=== PATIENT | female | born 1935 | race Two or more races ===

== ENCOUNTER 2017-05-26 09:50 | Inpatient (IN) | payer MEDICARE ==
[~2017-05-26] VITALS: Ht 167.6 cm; Wt 82.6 kg
[2017-05-26] MEDS ORDERED: LR IV STA (10:53)
[2017-05-26] MEDS ORDERED: ACETAMINOPHEN SUSP 80 MG/0.8 ML BOTTLE PO ONE (11:00)
[2017-05-26] MEDS ORDERED: PIPERACILLIN /TAZOBACTAM 3.375 G in IV D5W 50 ML IV ONE (11:00)
[2017-05-26] MEDS ORDERED: IV NS 0.9% 1,000 ML BAG IV ONE (11:00)
[2017-05-26] MEDS ORDERED: ACETAMINOPHEN 160 MG/5 ML ONE (11:03)
[2017-05-26 11:19] LABS: BASOPHILS % (AUTO) 0.1 % (0.0-2.0); EOSINOPHILS # (AUTO) 0.2 /CMM (0.0-0.7); EOSINOPHILS % (AUTO) 1.7 % (0.0-6.0); HEMATOCRIT 35 % (33-45); HEMOGLOBIN 11.7 g/dL (11.5-14.8); LYMPHOCYTES # (AUTO) 0.2 /CMM (0.8-4.8); LYMPHOCYTES % (AUTO) 1.6 % (20.0-44.0); MEAN CORPUSCULAR HEMOGLOBIN 30 PG (26.0-33.0); MEAN CORPUSCULAR HGB CONC 33 g/dl (31.0-36.0); MEAN CORPUSCULAR VOLUME 91 fL (82-100); MONOCYTES # (AUTO) 0.7 /CMM (0.1-1.30); MONOCYTES % (AUTO) 5.5 % (2.0-12.0); NEUTROPHILS # (AUTO) 11.6 /CMM (1.8-8.9); NEUTROPHILS % (AUTO) 91.1 % (43.0-81.0); PLATELET COUNT (AUTO) 207 /CMM (150-450); RDW COEFFICIENT OF VARIATION 14.2 (11.5-15.0); RED BLOOD CELL COUNT(AUTO) 3.87 MIL/uL (4.0-5.2); WHITE BLOOD COUNT (AUTO) 12.7 K/uL (4.3-11.0)
[2017-05-26 11:25] VITALS: BP 171/78
[2017-05-26 11:29] LABS: APPEARANCE,URINE Turbid (CLEAR); BILIRUBIN,URINE Negative (NEGATIVE); BLOOD, URINE Negative Ery/uL (NEGATIVE); COLOR,URINE Yellow (YELLOW); KETONES,URINE Trace (NEGATIVE); LEUKOCYTE ESTERASE ,URINE Small (NEGATIVE); NITRITE, URINE Negative (NEGATIVE); PH,URINE 5.5 (5.0-8.0); PROTEIN,URINE 100 mg/dl (NEGATIVE); UGLUCOSE Negative (NEGATIVE); UROBILINOGEN,URINE 0.2 EU/dL (0.2)
[2017-05-26 11:29] LABS: ABG BASE EXCESS 4.7 mmol/L; ABG OXYGEN SATURATION 98.2 % (92.0-98.5); ABG PCO2 56.6 mmHg (35.0-45.0); ABG PH 7.362 (7.350-7.450); AaDO2 233.5 mmHg; COHb 0.1 % (0.5-1.5); MetHb 0.4 % (0.0-1.5); O2Hb 97.7 % (94.0-97.0); PEEP,BG 5 cm H2O; SITE, ABG Left Radial; VENT MODE, BG A/C; VT, ABG 500 mL
[2017-05-26 11:34] LABS: PROTHROMBIN TIME 10.4 SECS (9.5-12.7)
[2017-05-26 11:37] LABS: TROPONIN I < 0.017 ng/mL (0.00-0.056)
[2017-05-26 11:44] LABS: BACTERIA,URINE Moderate /HPF (None Seen); RBC,URINE 0-2 /HPF (0-2); WBC,URINE TOO NUMEROUS TO COUN /HPF (0-3)
[2017-05-26 11:45] LABS: SQUAMOUS EPITHELIAL CELL,UR Many /HPF (None Seen)
[2017-05-26 11:48] LABS: ALANINE AMINOTRANSFERASE 16 U/L (12-78); ALBUMIN 2.8 g/dL (3.4-5.0); ALKALINE PHOSPHATASE 73 U/L (46-116); ASPARTATE AMINOTRANSFERASE 23 U/L (15-37); BILIRUBIN,DIRECT 0.1 mg/dL (0.0-0.2); BILIRUBIN,TOTAL 0.2 mg/dL (0.2-1.0); CALCIUM, SERUM 8.9 mg/dL (8.5-10.1); CARBON DIOXIDE 35 mmol/L (21-32); CHLORIDE 100 mmol/L (98-107); CREATININE 0.8 mg/dL (0.6-1.3); GLUCOSE 151 mg/dL (74-106); POTASSIUM 3.9 mmol/L (3.5-5.1); SODIUM SERUM 139 mmol/L (136-145); TOTAL PROTEIN, SERUM 7.6 g/dL (6.4-8.2); UREA NITROGEN, BLOOD 22 mg/dL (7-18)
[2017-05-26] MEDS ORDERED: CEFTRIAXONE 1GM BAG (ER ONLY) 1 GM/50 ML PIGGYBACK IV ONE (12:30)
[2017-05-26 14:34] VITALS: BP 158/79
[2017-05-26] MEDS ORDERED: ONDANSETRON HCL/PF 4 MG/2 ML VIAL IV PRN (15:00)
[2017-05-26] MEDS ORDERED: ACETAMINOPHEN 650 MG/20.3 ML UDC PO PRN (15:00)
[2017-05-26] MEDS ORDERED: DOSING PER PHARMACY-AMIKACI IV XX PRN (15:30)
[2017-05-26] MEDS ORDERED: MVI-12 10ML IV ONE (15:30)
[2017-05-26] MEDS ORDERED: ALBUTEROL FS 2.5 MG/3 ML VIAL.NEB ONE (15:39)
[2017-05-26] MEDS ORDERED: IPRATROPIUM NEB FS 0.5 MG/2.5 ML AMPUL.NEB ONE (15:39)
[2017-05-26] MEDS: IPRATROPIUM NEB FS 0.5 MG/2.5 ML AMPUL.NEB NEB SCH (15:42)
[2017-05-26] MEDS: ALBUTEROL FS 2.5 MG/0.5 ML VIAL.NEB NEB SCH (15:42)
[2017-05-26 15:43] VITALS: BP 114/55
[2017-05-26] MEDS ORDERED: GLYTROL 1,000 ML BAG GT PRN ×2 (16:00)
[2017-05-26 17:29] VITALS: BP 99/48
[2017-05-26 20:00] VITALS: BP 158/81
[2017-05-26 20:14] VITALS: BP 98/42
[2017-05-26] MEDS ORDERED: PIPERACILLIN /TAZOBACTAM 3.375 G VIAL IV ONE (21:31)
[2017-05-26] MEDS ORDERED: LEVETIRACETAM SOL (5 ML) 100 MG/ML UDC ONE (21:31)
[2017-05-26] MEDS ORDERED: ACETAMINOPHEN 325 MG TABLET ONE (21:32)
[2017-05-26] MEDS ORDERED: MULTIVITAMIN/LUTEIN/MINERALS 1 TAB ONE (21:32)
[2017-05-26] MEDS: IV NS 0.9% 100 ML IV SCH ×5 (23:38→23:45)
[2017-05-26] MEDS: PIPERACILLIN /TAZOBACTAM 3.375 G in IV D5W 50 ML IV SCH (23:39)
[2017-05-26] MEDS: LEVETIRACETAM SOL (5 ML) 100 MG/ML UDC PO SCH (23:39)
[2017-05-27] VITALS (8 sets, daily range): BP systolic 114–168; BP diastolic 50–78
[2017-05-27] MEDS ORDERED: ALBUTEROL FS 2.5 MG/0.5 ML VIAL.NEB ONE ×2 (02:02→23:08)
[2017-05-27] MEDS ORDERED: IPRATROPIUM NEB FS 0.5 MG/2.5 ML AMPUL.NEB ONE (02:02)
[2017-05-27] MEDS: ALBUTEROL FS 2.5 MG/0.5 ML VIAL.NEB NEB SCH ×5 (02:08→23:29)
[2017-05-27] MEDS: IPRATROPIUM NEB FS 0.5 MG/2.5 ML AMPUL.NEB NEB SCH ×7 (02:08→23:29)
[2017-05-27] MEDS: IV NS 0.9% 1,000 ML BAG IV PRN ×2 (04:11→04:15)
[2017-05-27] MEDS ORDERED: IV NS 0.9% 1,000 ML BAG IV PRN ×3 (05:00→07:30)
[2017-05-27] MEDS ORDERED: PIPERACILLIN /TAZOBACTAM 3.375 G VIAL IV ONE (05:37)
[2017-05-27] MEDS: PIPERACILLIN /TAZOBACTAM 3.375 G in IV D5W 50 ML IV SCH ×6 (06:23→23:14)
[2017-05-27 07:51] LABS: BASOPHILS % (AUTO) 0.6 % (0.0-2.0); EOSINOPHILS # (AUTO) 0.1 /CMM (0.0-0.7); EOSINOPHILS % (AUTO) 1.8 % (0.0-6.0); HEMATOCRIT 29 % (33-45); HEMOGLOBIN 9.7 g/dL (11.5-14.8); LYMPHOCYTES # (AUTO) 0.6 /CMM (0.8-4.8); MEAN CORPUSCULAR HEMOGLOBIN 31 PG (26.0-33.0); MEAN CORPUSCULAR HGB CONC 34 g/dl (31.0-36.0); MEAN CORPUSCULAR VOLUME 91 fL (82-100); MONOCYTES # (AUTO) 0.6 /CMM (0.1-1.30); MONOCYTES % (AUTO) 10.2 % (2.0-12.0); NEUTROPHILS # (AUTO) 4.6 /CMM (1.8-8.9); NEUTROPHILS % (AUTO) 76.4 % (43.0-81.0); PLATELET COUNT (AUTO) 160 /CMM (150-450); RDW COEFFICIENT OF VARIATION 14.2 (11.5-15.0); RED BLOOD CELL COUNT(AUTO) 3.18 MIL/uL (4.0-5.2); WHITE BLOOD COUNT (AUTO) 5.9 K/uL (4.3-11.0)
[2017-05-27 08:24] LABS: ALANINE AMINOTRANSFERASE 17 U/L (12-78); ALBUMIN 2.3 g/dL (3.4-5.0); ALKALINE PHOSPHATASE 53 U/L (46-116); ASPARTATE AMINOTRANSFERASE 25 U/L (15-37); BILIRUBIN,TOTAL 0.3 mg/dL (0.2-1.0); CARBON DIOXIDE 30 mmol/L (21-32); CHLORIDE 106 mmol/L (98-107); CREATININE 0.8 mg/dL (0.6-1.3); GLUCOSE 96 mg/dL (74-106); POTASSIUM 3.7 mmol/L (3.5-5.1); SODIUM SERUM 143 mmol/L (136-145); TOTAL PROTEIN, SERUM 6.2 g/dL (6.4-8.2); UREA NITROGEN, BLOOD 19 mg/dL (7-18)
[2017-05-27] MEDS ORDERED: IV NS 0.9% 1,000 ML IV PRN (08:30)
[2017-05-27] MEDS ORDERED: BISA10SU8 RC (08:44)
[2017-05-27] MEDS ORDERED: PROT946L GT (08:44)
[2017-05-27] MEDS ORDERED: LEVO25TA9 GT (08:44)
[2017-05-27] MEDS ORDERED: CARB-93 GT (08:44)
[2017-05-27] MEDS ORDERED: SENN-167 GT (08:44)
[2017-05-27] MEDS ORDERED: AMLO5TAB2 GT (08:44)
[2017-05-27] MEDS ORDERED: GABA-532 GT (08:44)
[2017-05-27] MEDS ORDERED: PANT40SU2 GT (08:44)
[2017-05-27] MEDS ORDERED: LACT-96 GT (08:44)
[2017-05-27] MEDS ORDERED: IPRA3AMP IH ×2 (08:44)
[2017-05-27] MEDS ORDERED: POLY119P2 GT (08:44)
[2017-05-27] MEDS ORDERED: DEXT15DR6 EACHEYE (08:44)
[2017-05-27] MEDS ORDERED: ACET-868 GT (08:44)
[2017-05-27] MEDS ORDERED: ONDA4TAB5 GT (08:44)
[2017-05-27] MEDS ORDERED: LACT10SO GT (08:44)
[2017-05-27] MEDS ORDERED: LEVE100S GT (08:44)
[2017-05-27] MEDS ORDERED: MULT-213 GT (08:44)
[2017-05-27] MEDS ORDERED: HYDR-4075 GT (08:44)
[2017-05-27] MEDS: MULTIVITAMINS,THERAGRAN 1 UDTAB TABLET GT SCH (08:52)
[2017-05-27] MEDS: GABAPENTIN 100 MG CAPSULE PO SCH ×3 (08:52→18:08)
[2017-05-27] MEDS: LEVETIRACETAM SOL (5 ML) 100 MG/ML UDC PO SCH ×3 (08:55→22:21)
[2017-05-27] MEDS ORDERED: PEDI NO 1 IV ONE ×2 (09:00)
[2017-05-27] MEDS ORDERED: MVI IV ONE ×2 (09:00)
[2017-05-27] MEDS ORDERED: VIT K IV ONE ×2 (09:00)
[2017-05-27] MEDS ORDERED: NS IV ONE ×2 (09:00)
[2017-05-27] MEDS ORDERED: CARBIDOPA/LEVODOPA 25/100 MG 1 UDTAB PO SCH (09:00)
[2017-05-27] MEDS: GLYTROL 1,000 ML BAG GT PRN (09:09)
[2017-05-27] MEDS: AMIKACIN 500 MG in IV D5W 100 ML IV SCH (10:31)
[2017-05-27 10:45] LABS: ABG OXYGEN SATURATION 94.5 % (92.0-98.5); ABG PCO2 53.8 mmHg (35.0-45.0); ABG PH 7.358 (7.350-7.450); ABG PO2 75.3 mmHg (75.0-100.0); COHb 0.5 % (0.5-1.5); MetHb 0.4 % (0.0-1.5); O2Hb 93.6 % (94.0-97.0); PEEP,BG 5 cm H2O; SITE, ABG Left Radial; VENT MODE, BG AC 14 550 40% +5; VT, ABG 550 mL
[2017-05-27] MEDS: VANCOMYCIN 1 GM in IV D5W 250 ML IV SCH (11:25)
[2017-05-27] MEDS ORDERED: FEE PK DOSING 1 MIN EA MC ONE ×3 (14:34→14:42)
[2017-05-27] MEDS ORDERED: Z GUARD REMEDY 4 OZ OINT TP PRN (15:30)
[2017-05-28] VITALS (8 sets, daily range): BP systolic 98–155; BP diastolic 51–77
[2017-05-28] MEDS ORDERED: ALBUTEROL FS 2.5 MG/0.5 ML VIAL.NEB ONE (03:02)
[2017-05-28] MEDS: VANCOMYCIN 1 GM in IV D5W 250 ML IV SCH ×2 (03:08→21:55)
[2017-05-28] MEDS: ALBUTEROL FS 2.5 MG/0.5 ML VIAL.NEB NEB SCH ×5 (03:11→19:55)
[2017-05-28] MEDS: IPRATROPIUM NEB FS 0.5 MG/2.5 ML AMPUL.NEB NEB SCH ×6 (03:11→19:54)
[2017-05-28] MEDS: PIPERACILLIN /TAZOBACTAM 3.375 G in IV D5W 50 ML IV SCH ×3 (05:22→18:23)
[2017-05-28] MEDS: GLYTROL 1,000 ML BAG GT PRN (05:57)
[2017-05-28 07:27] LABS: CARBON DIOXIDE 29 mmol/L (21-32); CHLORIDE 103 mmol/L (98-107); CREATININE 0.8 mg/dL (0.6-1.3); GLUCOSE 109 mg/dL (74-106); MAGNESIUM 1.8 mg/dL (1.8-2.4); POTASSIUM 3.4 mmol/L (3.5-5.1); SODIUM SERUM 139 mmol/L (136-145); UREA NITROGEN, BLOOD 13 mg/dL (7-18)
[2017-05-28 07:30] LABS: BASOPHILS % (AUTO) 0.4 % (0.0-2.0); EOSINOPHILS # (AUTO) 0.2 /CMM (0.0-0.7); EOSINOPHILS % (AUTO) 4.3 % (0.0-6.0); HEMATOCRIT 29 % (33-45); HEMOGLOBIN 9.6 g/dL (11.5-14.8); LYMPHOCYTES # (AUTO) 0.6 /CMM (0.8-4.8); LYMPHOCYTES % (AUTO) 11.2 % (20.0-44.0); MEAN CORPUSCULAR HEMOGLOBIN 30 PG (26.0-33.0); MEAN CORPUSCULAR HGB CONC 33 g/dl (31.0-36.0); MEAN CORPUSCULAR VOLUME 91 fL (82-100); MONOCYTES # (AUTO) 0.6 /CMM (0.1-1.30); MONOCYTES % (AUTO) 10.3 % (2.0-12.0); NEUTROPHILS # (AUTO) 4.2 /CMM (1.8-8.9); NEUTROPHILS % (AUTO) 73.8 % (43.0-81.0); PLATELET COUNT (AUTO) 161 /CMM (150-450); RDW COEFFICIENT OF VARIATION 14.1 (11.5-15.0); RED BLOOD CELL COUNT(AUTO) 3.17 MIL/uL (4.0-5.2); WHITE BLOOD COUNT (AUTO) 5.6 K/uL (4.3-11.0)
[2017-05-28] MEDS ORDERED: PANTOPRAZOLE 40 MG TABLET.DR PO SCH (07:30)
[2017-05-28] MEDS ORDERED: IV NS 0.9% 1,000 ML BAG IV PRN (07:30)
[2017-05-28] MEDS: GABAPENTIN 100 MG CAPSULE PO SCH ×3 (10:03→16:21)
[2017-05-28] MEDS: MULTIVITAMINS,THERAGRAN 1 UDTAB TABLET GT SCH (10:03)
[2017-05-28] MEDS: AMIKACIN 500 MG in IV D5W 100 ML IV SCH (10:05)
[2017-05-28] MEDS: IV NS 0.9% 1,000 ML IV PRN (12:34)
[2017-05-28] MEDS: PROSOURCE / PROSTAT (PYXIS) 30 ML UDC GT SCH (16:21)
[2017-05-28] MEDS ORDERED: KETOCONAZOLE SHAMPOO 120 ML BOTTLE TP SCH ×2 (20:00→20:15)
[2017-05-28] MEDS ORDERED: POTASSIUM CHLORIDE 20 MEQ TAB.PRT.SR PO ONE (20:00)
[2017-05-28] MEDS: FLUOCINONIDE 0.05% CREAM 60 GM TUBE TP SCH (21:00)
[2017-05-28] MEDS: LEVETIRACETAM SOL (5 ML) 100 MG/ML UDC PO SCH (21:54)
[2017-05-29] VITALS: BP 134/57
[2017-05-29] MEDS: ALBUTEROL FS 2.5 MG/0.5 ML VIAL.NEB NEB SCH ×6 (00:13→19:56)
[2017-05-29] MEDS: IPRATROPIUM NEB FS 0.5 MG/2.5 ML AMPUL.NEB NEB SCH ×6 (00:13→19:56)
[2017-05-29] MEDS: PIPERACILLIN /TAZOBACTAM 3.375 G in IV D5W 50 ML IV SCH ×5 (00:19→23:49)
[2017-05-29] MEDS: IV NS 0.9% 1,000 ML IV PRN ×2 (02:24→16:41)
[2017-05-29 04:00] VITALS: BP 146/59
[2017-05-29] MEDS: GLYTROL 1,000 ML BAG GT PRN ×2 (05:51→16:42)
[2017-05-29 06:52] LABS: BASOPHILS % (AUTO) 0.4 % (0.0-2.0); EOSINOPHILS # (AUTO) 0.3 /CMM (0.0-0.7); EOSINOPHILS % (AUTO) 5.6 % (0.0-6.0); HEMATOCRIT 29 % (33-45); HEMOGLOBIN 9.9 g/dL (11.5-14.8); LYMPHOCYTES # (AUTO) 0.8 /CMM (0.8-4.8); MEAN CORPUSCULAR HEMOGLOBIN 31 PG (26.0-33.0); MEAN CORPUSCULAR HGB CONC 34 g/dl (31.0-36.0); MEAN CORPUSCULAR VOLUME 92 fL (82-100); MONOCYTES # (AUTO) 0.6 /CMM (0.1-1.30); MONOCYTES % (AUTO) 12.4 % (2.0-12.0); NEUTROPHILS # (AUTO) 3.2 /CMM (1.8-8.9); NEUTROPHILS % (AUTO) 65.6 % (43.0-81.0); PLATELET COUNT (AUTO) 155 /CMM (150-450); RED BLOOD CELL COUNT(AUTO) 3.17 MIL/uL (4.0-5.2); WHITE BLOOD COUNT (AUTO) 4.9 K/uL (4.3-11.0)
[2017-05-29 07:09] LABS: CALCIUM, SERUM 8.1 mg/dL (8.5-10.1); CARBON DIOXIDE 31 mmol/L (21-32); CHLORIDE 102 mmol/L (98-107); CREATININE 0.8 mg/dL (0.6-1.3); GLUCOSE 111 mg/dL (74-106); POTASSIUM 3.6 mmol/L (3.5-5.1); SODIUM SERUM 137 mmol/L (136-145); UREA NITROGEN, BLOOD 13 mg/dL (7-18)
[2017-05-29 08:00] VITALS: BP 142/79
[2017-05-29] MEDS: PANTOPRAZOLE 40 MG/PACK PACK GT SCH (08:35)
[2017-05-29] MEDS: GABAPENTIN 100 MG CAPSULE PO SCH ×3 (08:35→16:41)
[2017-05-29] MEDS: MULTIVITAMINS,THERAGRAN 1 UDTAB TABLET GT SCH (08:35)
[2017-05-29] MEDS: LEVETIRACETAM SOL (5 ML) 100 MG/ML UDC PO SCH ×2 (08:35→21:33)
[2017-05-29] MEDS: PROSOURCE / PROSTAT (PYXIS) 30 ML UDC GT SCH ×2 (08:36→16:41)
[2017-05-29] MEDS: AMIKACIN 500 MG in IV D5W 100 ML IV SCH (10:12)
[2017-05-29] MEDS: KETOCONAZOLE SHAMPOO 120 ML BOTTLE TP SCH (11:32)
[2017-05-29 12:00] VITALS: BP 153/66
[2017-05-29] MEDS: FLUOCINONIDE 0.05% CREAM 60 GM TUBE TP SCH ×2 (14:36→21:34)
[2017-05-29] MEDS: LINEZOLID RTU BAG 600 MG in PREMIX 1 EA IV SCH (15:46)
[2017-05-29 16:00] VITALS: BP 156/70
[2017-05-29] MEDS ORDERED: FUROSEMIDE 20 MG/2 ML VIAL IV ONE (18:30)
[2017-05-29 20:00] VITALS: BP 146/79
[2017-05-30] VITALS: BP 152/76
[2017-05-30] MEDS: IPRATROPIUM NEB FS 0.5 MG/2.5 ML AMPUL.NEB NEB SCH ×6 (00:01→20:00)
[2017-05-30] MEDS: ALBUTEROL FS 2.5 MG/0.5 ML VIAL.NEB NEB SCH ×6 (00:01→20:00)
[2017-05-30] MEDS: LINEZOLID RTU BAG 600 MG in PREMIX 1 EA IV SCH ×2 (03:29→14:52)
[2017-05-30 04:00] VITALS: BP 144/77
[2017-05-30] MEDS: PIPERACILLIN /TAZOBACTAM 3.375 G in IV D5W 50 ML IV SCH ×3 (06:02→17:18)
[2017-05-30 06:48] LABS: BASOPHILS % (AUTO) 0.4 % (0.0-2.0); EOSINOPHILS # (AUTO) 0.5 /CMM (0.0-0.7); EOSINOPHILS % (AUTO) 11.2 % (0.0-6.0); HEMATOCRIT 31 % (33-45); HEMOGLOBIN 10.5 g/dL (11.5-14.8); LYMPHOCYTES # (AUTO) 1.1 /CMM (0.8-4.8); LYMPHOCYTES % (AUTO) 22.5 % (20.0-44.0); MEAN CORPUSCULAR HEMOGLOBIN 30 PG (26.0-33.0); MEAN CORPUSCULAR HGB CONC 34 g/dl (31.0-36.0); MEAN CORPUSCULAR VOLUME 90 fL (82-100); MONOCYTES # (AUTO) 0.7 /CMM (0.1-1.30); MONOCYTES % (AUTO) 13.8 % (2.0-12.0); NEUTROPHILS # (AUTO) 2.5 /CMM (1.8-8.9); NEUTROPHILS % (AUTO) 52.1 % (43.0-81.0); PLATELET COUNT (AUTO) 170 /CMM (150-450); RED BLOOD CELL COUNT(AUTO) 3.46 MIL/uL (4.0-5.2); WHITE BLOOD COUNT (AUTO) 4.8 K/uL (4.3-11.0)
[2017-05-30 07:15] LABS: CALCIUM, SERUM 8.6 mg/dL (8.5-10.1); CARBON DIOXIDE 35 mmol/L (21-32); CHLORIDE 99 mmol/L (98-107); CREATININE 0.8 mg/dL (0.6-1.3); GLUCOSE 145 mg/dL (74-106); POTASSIUM 3.3 mmol/L (3.5-5.1); SODIUM SERUM 137 mmol/L (136-145); UREA NITROGEN, BLOOD 10 mg/dL (7-18)
[2017-05-30 08:00] VITALS: BP 157/68
[2017-05-30] MEDS: PANTOPRAZOLE 40 MG/PACK PACK GT SCH (08:56)
[2017-05-30] MEDS: LEVETIRACETAM SOL (5 ML) 100 MG/ML UDC PO SCH ×2 (08:56→20:31)
[2017-05-30] MEDS: MULTIVITAMINS,THERAGRAN 1 UDTAB TABLET GT SCH (08:56)
[2017-05-30] MEDS: PROSOURCE / PROSTAT (PYXIS) 30 ML UDC GT SCH ×2 (08:56→16:16)
[2017-05-30] MEDS: GABAPENTIN 100 MG CAPSULE PO SCH ×3 (08:56→16:16)
[2017-05-30] MEDS: GLYTROL 1,000 ML BAG GT PRN (11:19)
[2017-05-30 12:00] VITALS: BP 156/61
[2017-05-30] MEDS: AMIKACIN 500 MG in IV D5W 100 ML IV SCH (14:10)
[2017-05-30 16:00] VITALS: BP 139/70
[2017-05-30 20:00] VITALS: BP 129/68
[2017-05-30] MEDS: FLUOCINONIDE 0.05% 15 GM OINT..GM. TP SCH (20:31)
[2017-05-31] VITALS (7 sets, daily range): BP systolic 106–158; BP diastolic 51–86
[2017-05-31] MEDS: ALBUTEROL FS 2.5 MG/0.5 ML VIAL.NEB NEB SCH ×6 (00:13→20:27)
[2017-05-31] MEDS: IPRATROPIUM NEB FS 0.5 MG/2.5 ML AMPUL.NEB NEB SCH ×6 (00:13→20:27)
[2017-05-31] MEDS: PIPERACILLIN /TAZOBACTAM 3.375 G in IV D5W 50 ML IV SCH ×3 (00:35→12:24)
[2017-05-31] MEDS: LINEZOLID RTU BAG 600 MG in PREMIX 1 EA IV SCH (03:11)
[2017-05-31] MEDS: GLYTROL 1,000 ML BAG GT PRN (03:27)
[2017-05-31 08:23] LABS: CALCIUM, SERUM 8.7 mg/dL (8.5-10.1); CARBON DIOXIDE 34 mmol/L (21-32); CHLORIDE 99 mmol/L (98-107); CREATININE 0.7 mg/dL (0.6-1.3); GLUCOSE 135 mg/dL (74-106); POTASSIUM 3.3 mmol/L (3.5-5.1); SODIUM SERUM 140 mmol/L (136-145); UREA NITROGEN, BLOOD 8 mg/dL (7-18)
[2017-05-31] MEDS: PROSOURCE / PROSTAT (PYXIS) 30 ML UDC GT SCH ×2 (08:23→16:09)
[2017-05-31] MEDS: PANTOPRAZOLE 40 MG/PACK PACK GT SCH (08:23)
[2017-05-31] MEDS: LEVETIRACETAM SOL (5 ML) 100 MG/ML UDC PO SCH ×2 (08:24→20:22)
[2017-05-31] MEDS: MULTIVITAMINS,THERAGRAN 1 UDTAB TABLET GT SCH (08:24)
[2017-05-31] MEDS: FLUOCINONIDE 0.05% 15 GM OINT..GM. TP SCH ×2 (08:24→20:21)
[2017-05-31] MEDS: GABAPENTIN 100 MG CAPSULE PO SCH ×3 (08:24→16:09)
[2017-05-31] MEDS: KETOCONAZOLE SHAMPOO 120 ML BOTTLE TP SCH (11:32)
[2017-05-31] MEDS: AMIKACIN 500 MG in IV D5W 100 ML IV SCH (11:32)
[2017-05-31] MEDS: LINEZOLID 600 MG TABLET PO SCH ×2 (12:24→20:21)
[2017-05-31] MEDS ORDERED: POTASSIUM CHLORIDE 20 MEQ TAB.PRT.SR PO ONE (20:00)
[2017-05-31] MEDS ORDERED: FUROSEMIDE 20 MG/2 ML VIAL IV ONE (20:00)
[2017-06-01] VITALS: BP_SYST 160; BP_SYST 168; BP_DIAS 78
[2017-06-01] MEDS: ALBUTEROL FS 2.5 MG/0.5 ML VIAL.NEB NEB SCH ×4 (03:32→11:49)
[2017-06-01] MEDS: IPRATROPIUM NEB FS 0.5 MG/2.5 ML AMPUL.NEB NEB SCH ×4 (03:32→11:49)
[2017-06-01 04:00] VITALS: BP 158/81
[2017-06-01 07:34] LABS: CALCIUM, SERUM 9.2 mg/dL (8.5-10.1); CARBON DIOXIDE 37 mmol/L (21-32); CHLORIDE 99 mmol/L (98-107); CREATININE 0.7 mg/dL (0.6-1.3); GLUCOSE 117 mg/dL (74-106); SODIUM SERUM 140 mmol/L (136-145); UREA NITROGEN, BLOOD 10 mg/dL (7-18)
[2017-06-01 08:00] VITALS: BP 162/94
[2017-06-01] MEDS: GABAPENTIN 100 MG CAPSULE PO SCH ×2 (08:52→13:29)
[2017-06-01] MEDS: PANTOPRAZOLE 40 MG/PACK PACK GT SCH (08:52)
[2017-06-01] MEDS: MULTIVITAMINS,THERAGRAN 1 UDTAB TABLET GT SCH (08:53)
[2017-06-01] MEDS: LINEZOLID 600 MG TABLET PO SCH (08:53)
[2017-06-01] MEDS: LEVETIRACETAM SOL (5 ML) 100 MG/ML UDC PO SCH (08:53)
[2017-06-01] MEDS: FLUOCINONIDE 0.05% 15 GM OINT..GM. TP SCH (08:54)
[2017-06-01] MEDS: PROSOURCE / PROSTAT (PYXIS) 30 ML UDC GT SCH (08:55)
[2017-06-01] MEDS: AMIKACIN 500 MG in IV D5W 100 ML IV SCH (11:26)
[2017-06-01] MEDS: GLYTROL 1,000 ML BAG GT PRN (11:26)
== END 2017-06-01 14:12 | DRG 870 ==
LOC: ER 09:51 → TELE-TD 19:43 → MEDSG1 05-31 11:53 → TELE1 05-31 11:54
PROVIDERS: ADMIT Internal Medicine; ATTEND Internal Medicine
PROC: 5A1955Z Respiratory Ventilation, Greater than 96 Consecutive Hours (ICD-10-PCS; principal; 2017-05-26)
DX: A41.9 Sepsis, unspecified organism (principal); J96.21 Acute and chronic respiratory failure with hypoxia; J18.9 Pneumonia, unspecified organism; G93.40 Encephalopathy, unspecified; E44.0 Moderate protein-calorie malnutrition; Z93.0 Tracheostomy status; J44.0 Chronic obstructive pulmonary disease with (acute) lower respiratory infection; G20 Parkinson's disease; E88.09 Other disorders of plasma-protein metabolism, not elsewhere classified; J96.22 Acute and chronic respiratory failure with hypercapnia; N39.0 Urinary tract infection, site not specified; Z93.1 Gastrostomy status; D64.9 Anemia, unspecified; E86.0 Dehydration; R13.10 Dysphagia, unspecified; E11.9 Type 2 diabetes mellitus without complications; G40.909 Epilepsy, unspecified, not intractable, without status epilepticus; I10 Essential (primary) hypertension; Z86.73 Personal history of transient ischemic attack (TIA), and cerebral infarction without residual deficits; J40 Bronchitis, not specified as acute or chronic; B95.2 Enterococcus as the cause of diseases classified elsewhere; Z16.21 Resistance to vancomycin; L21.0 Seborrhea capitis; Z79.899 Other long term (current) drug therapy; Z68.29 Body mass index [BMI] 29.0-29.9, adult
CPT/HCPCS: 31720; 36415; 36600; 71045; 80048-TC; 80053-TC; 80076-TC; 80150; 81000-TC; 83605-TC; 83735-TC; 84484-TC; 85025-TC; 85730-TC; 87040-TC; 87081-TC; 87086-TC; 87186-TC; 93970-TC; 94003-TC; 94760-TC; 94762-TC; A4216; A4606; A6402; A7526; J0278; J1940; J1953; J2020; J2543; J3370; J7030; J7060; J7120; Z7610